=== PATIENT | male | born 1975 | race Caucasian/White ===

== ENCOUNTER → 2023-01-11 | Outpatient (CLI) | payer BC ==
--- NOTE | 2023-01-11 18:34 | Diagnostic Imaging Report ---
INDICATION: Palpable area of concern of the posterior mid back. COMPARISON: None. FINDINGS: Limited focused sonographic evaluation of the superficial soft tissues of the posterior mid back in the patient's palpable area of concern was performed. Area of concern corresponds to well-circumscribed hypoechoic lesion within the subcutaneous soft tissues. Color flow images show no evidence of internal vascularity. Posterior acoustic enhancement suggests fluid-filled structure. IMPRESSION: 1. Patient's palpable area of concern appears to correspond a fluid-filled structure within the superficial soft tissues. This could be on the basis of a sebaceous cyst. This is in a position amenable to ultrasound-guided aspiration, if indicated. Dictated by: Dictated on workstation # [id number]
== END ==
LOC: RAD 08:06
PROVIDERS: ATTEND Nurse Practitioner Family
DX: D17.1 Benign lipomatous neoplasm of skin and subcutaneous tissue of trunk (principal)
CPT/HCPCS: 76604